=== PATIENT | female | born 1995 | race Caucasian/White ===

== ENCOUNTER → 2020-11-18 | Outpatient (CLI) | payer OTHER, SELFPAY ==
[2020-11-18 08:40] VITALS: BMI 34.0
[2020-11-20 12:51] LABS: HPV Reflexed? NOT INDICATED
== END | disposition home or self-care (01) ==
LOC: LABSPEC 12:45
PROVIDERS: Referring Provider Obstetrics & Gynecology; Visit Provider Obstetrics & Gynecology
DX: N89.8 Other specified noninflammatory disorders of vagina (principal); Z12.4 Encounter for screening for malignant neoplasm of cervix
CPT/HCPCS: 87070; 87205; 88175; G0145

== ENCOUNTER → 2021-05-16 | Outpatient (CLI) | payer OTHER, SELFPAY | END | disposition home or self-care (01) | LOC: LABSPEC 05-17 10:00 | PROVIDERS: Referring Provider Physician Assistant Surgical; Visit Provider Physician Assistant Surgical | DX: Z20.822 Contact with and (suspected) exposure to COVID-19 (principal) | CPT/HCPCS: 87635; U0005; U0003 ==

== ENCOUNTER 2021-09-21 20:30 | Emergency (ER) | payer OTHER, SELFPAY ==
[2021-09-21 20:31] VITALS: BP 146/97; PULSE 103; RESP 18; TEMP 36.3; O2SAT 98; BMI 34.4
--- NOTE | 2021-09-21 20:55 | EX.ED.DYSGE1 ---
HPI History of Present Illness Chief Complaint: Allergic Reaction Informant: patient Narrative Narrative: 26-year-old female presents to the emergency room with urticaria. Symptoms began yesterday. She states that she used a off brand Robitussin and started to develop hives. She took some Benadryl which did seem to help but now the Benadryl is not helping. She notes itching and rash diffusely. She denies any difficulty swallowing no shortness of breath. No diarrhea. Recently tested negative for COVID. PFSH PFS Medical History Asthma Home Medications multivitamin 1 tab PO DAILY 11/18/20 [History Last Taken Unknown] famotidine 20 mg PO BID #10 tablet 09/21/21 [Rx Last Taken Unknown] prednisone 60 mg PO DAILY #15 tablet 09/21/21 [Rx Last Taken Unknown] Allergy/AdvReac Type Severity Reaction Status Date / Time No Known Allergies Allergy Verified 05/16/21 16:57 Surgical History H/O shoulder surgery [place] teeth extracted Social History current occupational status: student current occupation: nursing BSN Smoking Status: Never smoker alcohol intake: current alcohol intake frequency: holidays/special occasions only substance use type: does not use seatbelt use: always do you feel safe at home: Yes ROS ROS ED Constitutional Constitutional ED: Denies chills, fever(s) or weight loss Eyes Eyes: Denies change in vision or diplopia ENT ENT ED: Denies ear pain, rhinorrhea or sore throat Cardiovascular Cardiovascular: Denies chest pain, orthopnea, palpitations or racing heartbeat Respiratory/Chest Respiratory/Chest: Denies cough, dyspnea or orthopnea Gastrointestinal Gastrointestinal: Denies abdominal pain, diarrhea, nausea or vomiting Genitourinary Genitourinary ED: Denies dysuria, hematuria or urinary frequency Musculoskeletal Musculoskeletal: Denies arthralgias or myalgias Integumentary Reports rash; Denies abscess Neurologic Neurologic: Denies headache(s) or weakness Psychiatric Psychiatric: Denies anxiety, depression, suicidal ideation or suicidal thoughts Endocrine Endocrinology: Denies polydipsia, polyphagia or polyuria Allergic/Immunologic Allergic/Immunologic ED: Denies mouth swelling, tongue swelling or urticaria EXAM Physical Exam Const Vital Signs: 09/21/21 20:31 Temperature 97.3 F L Temperature Source Temporal Pulse Rate 103 H Respiratory Rate 18 Blood Pressure 146/97 H Blood Pressure Mean 113 Pulse Ox 98 Oxygen Delivery Method Room Air Positive well nourished and well developed General Appearance ED: well developed HEENT Reports normocephalic, head/scalp atraumatic, TM's clear and moist mucous membranes HEENT Narrative: No tongue swelling or uvular swelling. Floor the mouth is soft. Negative for trauma Tympanic Membrane ED: Yes TM's clear Eyes PERRL and EOMs intact bilaterally Neck no lymphadenopathy, supple and no JVD Resp normal respiratory effort and clear to auscultation bilaterally Cardio regular rate, regular rhythm and no murmurs GI normal to inspection, nondistended, normoactive bowel sounds and non-tender Palpation: soft Back/Spine no CVA tenderness and normal ROM Extremity normal to inspection General Extremety ED: Negative for edema General Extremity: Negative for edema Neuro oriented x3 and CN's II-XII intact bilaterally Sensorium / Orientation: alert Motor Exam: strength 5/5 throughout Psych mental status grossly normal Mood & Affect: Negative for depressed or tearful Skin no wounds Skin Narrative: Patient does have urticaria arms legs chest back abdomen and face. MDM MDM MDM Narrative Medical decision making narrative: Patient will be started on prednisone and Pepcid in addition to the Benadryl. Instructions to discontinue the Robitussin. Return if worsening or concerns Discharge Plan Triage Chief Complaint: Allergic Reaction ED Provider: Jorje Cruz Dx/Rx/DC Orders Clinical Impression: Urticaria Instructions: ED Hives (Adult) Prescriptions: New prednisone 20 MG tablet 60 mg PO DAILY Qty: 15 RF: 0 famotidine [famotidine] 20 MG tablet 20 mg PO BID Qty: 10 RF: 0 No Action multivitamin [Daily Multi-Vitamin] Tablet 1 tab PO DAILY RF: 0 Primary Care Provider: Care Physician,No Primary Referrals: Care Physician,No Primary [Primary Care Provider] - Activity Restrictions/Additional Instructions: Continue Benadryl every 6 hours. Disposition Disposition: Home, Self Care
[2021-09-21] MEDS: Famotidine 20 MG Tablet 40 MG PO (21:03)
[2021-09-21] MEDS: predniSONE 20 MG Tablet 60 MG PO (21:03)
[2021-09-21] MEDS: DiphenhydrAMINE 25 MG Capsule 50 MG PO (21:03)
[2021-09-21 21:20] VITALS: BP 118/37; PULSE 62; RESP 15; O2SAT 98
== END 2021-09-21 21:21 | disposition home or self-care (01) ==
LOC: ED 21:14
PROVIDERS: Emergency Provider Emergency Medicine; Visit Provider Emergency Medicine
DX: L50.0 Allergic urticaria (principal)
CPT/HCPCS: 99283

== ENCOUNTER 2022-12-01 00:08 | Emergency (ER) | payer OTHER, SELFPAY ==
[2022-12-01 00:09] VITALS: BP 148/99; PULSE 79; RESP 18; TEMP 36; O2SAT 100; BMI 33.5
--- NOTE | 2022-12-01 01:20 | EDS_ITS ---
HPI HPI - GI History of Present Illness Chief Complaint: GI Bleed Narrative Narrative: 2 bouts of rectal bleeding tonight. No anal pain, abdominal pain, nausea, vomiting, lightheadedness or other symptoms of anemia. Never had this before. Takes no prescription medications for any medical problems. She has never had a colonoscopy for any reason, there is no significant family history of inflammatory bowel disease or colon cancer at young ages, just irritable bowel syndrome. She states she had normal consistency of stool, and there was blood mixed in it and when she wiped. [facility] Medical History Asthma Pneumonia Home Medications hydrocortisone 1 %-pramoxine 1 % rectal foam (Proctofoam HC) 1 applic RI QHS PRN hemorrhoids 1 week #10 grams 12/01/22 [Rx Last Taken Unknown] Allergy/AdvReac Type Severity Reaction Status Date / Time Seasonal Allergies: Uncoded Allergy Intermediate Itching Verified 12/01/22 00:10 raw fruits and vegatables Allergy Intermediate Itching Uncoded 12/01/22 00:10 Family History Mother Arthritis Hypertension Grandmother Diabetes Depression Father Anxiety Grandfather Alcoholism Sister Anxiety Asthma Surgical History H/O shoulder surgery [place] teeth extracted Social History current occupational status: student current occupation: nursing BSN Smoking Status: Never smoker alcohol intake: current alcohol intake frequency: holidays/special occasions only details: beer and wine on occaasion substance use type: does not use seatbelt use: always do you feel safe at home: Yes ROS ROS ED Constitutional Constitutional ED: Denies chills or fever(s) Eyes Eyes: Denies change in vision or diplopia ENT ENT ED: Denies rhinorrhea or sore throat Cardiovascular Cardiovascular: Denies chest pain or palpitations Respiratory/Chest Respiratory/Chest: Denies cough or dyspnea Gastrointestinal Gastrointestinal: Reports hematochezia; Denies abdominal pain, diarrhea, hemorrhoids, melena, nausea or vomiting Genitourinary Genitourinary ED: Denies dysuria, hematuria or urinary frequency Musculoskeletal Musculoskeletal: Denies back pain or neck pain Integumentary Denies abscess or rash Neurologic Neurologic: Denies headache(s), paresthesias or weakness Psychiatric Psychiatric: Denies anxiety or suicidal thoughts EXAM Physical Exam Const Vital Signs: 12/01/22 00:09 Temperature 96.8 F L Temperature Source Temporal Pulse Rate 79 Respiratory Rate 18 Blood Pressure 148/99 H Blood Pressure Mean 115 Pulse Ox 100 Oxygen Delivery Method Room Air Positive well nourished and well developed Constitutional Narrative: Well-appearing no distress General Appearance ED: well developed and NAD HEENT Reports moist mucous membranes normocephalic and atraumatic Eyes PERRL and EOMs intact bilaterally Neck full ROM and supple Resp normal respiratory effort and clear to auscultation bilaterally Cardio regular rate, regular rhythm and no murmurs Rate: Negative for tachycardic GI non-tender and non-distended GI Narrative: On rectal exam, there is no tenderness, there are no external hemorrhoids or fissures, there is no active bleeding. Benign exam. Auscultation: normoactive bowel sounds Palpation: soft Back/Spine no CVA tenderness General Back: other FROM Extremity normal to inspection General Extremety ED: Negative for edema, pulses abnormal or tenderness General Extremity: Negative for edema or pulses abnormal Neuro oriented x3, CN's II-XII intact bilaterally and no sensory deficits noted Sensorium / Orientation: awake and alert Motor Exam: strength 5/5 throughout Skin no rashes or lesions noted and no wounds MDM MDM MDM Narrative Medical decision making narrative: Labs were obtained, that showed no significant elevation of BUN, and she is not anemic. Hemodynamics are normal. She remained clinically stable. She felt like she needed have a bowel movement but she went to the bathroom and urinated, did not have a bowel movement no further bleeding she was monitored in the ER for several hours and had no other episodes of rectal bleeding. At this time there is no indication for emergent imaging or other testing. Her external perianal exam is very benign. Differential here includes diverticulosis which is less likely in her age group, inflammatory bowel disease, other causes of intestinal irritation, less likely infection since she does no diarrhea, and in my judgment more likely to be an internal hemorrhoid that she has no discomfort from since there is no prolapse. I am prescribing her Proctofoam HC and advising her use it for at least a week and follow-up with her doctor to reevaluate, we discussed reasons to return she comfortable with that plan. Lab Data Attestation: I reviewed the patient's lab results. Labs: Laboratory Results - last 24 hr 12/01/22 12/01/22 00:11 00:11 WBC 9.3 RBC 4.81 Hgb 12.8 Hct 40.7 MCV 84.6 MCH 26.6 L MCHC 31.4 L RDW Std Deviation 41.2 RDW Coeff of Jen 13.2 Plt Count 388 MPV 10.3 Immature Gran % (Auto) 0.100 Neut % (Auto) 58.6 Lymph % (Auto) 30.2 [place] % (Auto) 8.1 Eos % (Auto) 2.4 Baso % (Auto) 0.6 Absolute Neuts (auto) 5.4 Absolute Lymphs (auto) 2.81 Nucleated RBC % 0 Sodium 141 Potassium 3.6 Chloride 111 H Carbon Dioxide 25.0 Anion Gap 5 BUN 16 Creatinine 0.66 Estim Creat Clear Calc 136.18 Est GFR (MDRD) Af Amer 139 Est GFR (MDRD) Non-Af 115 BUN/Creatinine Ratio 24.1 H Glucose 103 Calcium 8.8 Discharge Plan Triage Chief Complaint: GI Bleed ED Provider: Rodger Hutton Dx/Rx/DC Orders Clinical Impression: Rectal bleeding Instructions: Rectal Bleeding Tx Prescriptions: New Proctofoam HC 1-1 % foam 1 applic RI QHS PRN (Reason: hemorrhoids) 7 Days Qty: 10 0RF Primary Care Provider: Nena Conroy Referrals: Nena Conroy MD [Primary Care Provider] - 1-2 Weeks Disposition Disposition: Home, Self Care
[2022-12-01 01:26] LABS: Absolute Lymphocyte Count 2.81 X10^3/uL (0.83-4.51); Absolute Neutrophil Count 5.4 X10^3/uL (2.0-7.7); Basophil# 0.06 X10^3/uL; Basophil% 0.6 % (0-1); Eosinophil# 0.22 X10^3/uL; Eosinophils% 2.4 % (0-5); Hematocrit 40.7 % (37-47); Hemoglobin 12.8 g/dL (12.0-15.0); Lymphocyte # 2.81 X10^3/ul (0.83-4.51); Lymphocyte % 30.2 % (19-41); Mean Corp Hgb Conc 31.4 g/dL (32-36); Mean Corpuscular Hgb 26.6 pg (27.0-32.0); Mean Corpuscular Volume 84.6 fL (81-99); Mean Platelet Vol. 10.3 fl (6.2-12.0); Monocyte# 0.75 X10^3/uL; Monocyte% 8.1 % (0-10); NRBC Flagged by Analyzer 0 % (0-5); Neutrophil # 5.44 X10^3/uL (2.7-7.7); Neutrophil % 58.6 % (47-70); Platelet Count 388 K/mm3 (150-450); RBC Distribution Width CV 13.2 % (11.6-14.6); RBC Distribution Width SD 41.2 fl (35.1-43.9); Red Blood Count 4.81 M/mm3 (4.2-5.4); White Blood Count 9.3 K/mm3 (4.4-11.0)
[2022-12-01 01:35] LABS: Anion Gap 5 (5-15); BUN 16 mg/dL (7-18); BUN/Creat Ratio 24.1 RATIO (10-20); Calcium,Total 8.8 mg/dL (8.5-10.1); Chloride 111 mmol/L (98-107); Creatinine, Serum 0.66 mg/dL (0.55-1.02); EST Glomerular Filtration Rate 115 mL/min (>60); Est Glom Filt Rate - Afr Amer 139 mL/min (>60); Estimated Creatinine Clearance 136.18 ml/min; Glucose 103 mg/dL (74-106); Potassium 3.6 mmol/L (3.5-5.1); Sodium Level 141 mmol/L (136-145)
[2022-12-01 03:34] VITALS: BP 128/64; PULSE 64; RESP 18; O2SAT 100
== END 2022-12-01 03:36 | disposition home or self-care (01) ==
PROVIDERS: Emergency Provider Emergency Medicine; PCP Internal Medicine; Visit Provider Emergency Medicine
DX: K62.5 Hemorrhage of anus and rectum (principal)
CPT/HCPCS: 80048; 85025; 99282; A4216